=== PATIENT | female | born 1995 | race Caucasian/White ===

== ENCOUNTER 2024-02-04 14:29 | Emergency (ER) | payer BC, SELFPAY ==
--- NOTE | ~2024-02-04 | XR_ITS ---
XR chest 2V Ordering provider: Rand Briseno PA-C History: 28 years Female with . CP . Comparison: None. FINDINGS: MEDIASTINUM: The cardiac silhouette is not enlarged. LUNGS: No infiltrates, effusions or pneumothorax. OTHER: No free air under the diaphragm. IMPRESSION: No acute cardiopulmonary pathology. Reviewed, dictated and finalized at location A.
[2024-02-04 14:32] VITALS: BP 154/85; PULSE 74; RESP 18; TEMP 36.9; O2SAT 98
--- NOTE | 2024-02-04 14:34 | ECG_ITS ---
Test Date: 2024-02-04 14:40:38 Measurements Intervals [place] Rate: 71 P: 66 ND: 145 QRS: 77 QRSD: 80 T: 50 QT: 360 QTc: 391 Interpretive Statements SINUS RHYTHM NORMAL ECG No previous ECG available for comparison Electronically Signed On 02-04-2024 16:27:21 CDT by Maged Sanabria M.D.
--- NOTE | 2024-02-04 14:34 | ED_ITS ---
HPI - Chest Pain General Chief Complaint: Chest Pain Stated Complaint: chest pain Time Seen by Provider: 02/04/24 14:34 Focused HPI: this is a 28-year-old female that presents to the emergency department for left-sided chest pain. Ongoing intermittently over the last couple of days. Reports history of depression. Has had increased stress lately. She was recently started on an antidepressant. Reports sharp, stabbing pains worse with deep breathing. GENERAL: Anxious, tearful HEAD: Normocephalic, atraumatic. CHEST: Clear to auscultation. ?No respiratory distress. HEART: Regular rate and rhythm.? NEURO: ?Alert and oriented x3. Patient screened in triage and initial orders placed.? ?Additional care and disposition to be based upon?diagnostic testing and treatment. Related Data Allergies Allergy/AdvReac Type Severity Reaction Status Date / Time No Known Allergies Allergy Verified 02/04/24 14:30 [facility] Social History Social History Smoking status: Former smoker Alcohol intake: never Discharge Plan Discharge Follow-up/Referrals: Deepak,NOELLE Antoine [Primary Care Provider] -
[2024-02-04 15:17] LABS: Basophils Percent Auto 0.4 % (0.2-1.2); Eosinophils Absolute Auto 0.1 K/mm3 (0-0.3); Eosinophils Percent Auto 0.5 % (0-4.4); Immature Granulocyte Absolute 0.02 K/mm3 (0.00-0.031); Immature Granulocyte Percent A 0.2 % (0-0.5); Lymphocytes Absolute Auto 2.12 K/mm3 (0.9-3.2); Lymphocytes Percent Auto 22.3 % (18.3-44.2); Mean Corpuscular HGB Conc 33.3 g/dl (32-36); Mean Corpuscular Hemoglobin 31.1 pg (26-34); Mean Corpuscular Volume 93.3 fl (80-100); Mean Platelet Volume 9.3 fl (7.4-10.4); Monocytes Absolute Auto 0.5 K/mm3 (0.1-0.6); Neutrophils Absolute Auto 6.8 K/mm3 (1.3-6.7); Neutrophils Percent Auto 71.6 % (45.5-73.1); Platelet Count Result 253 k/mm3 (150-375); Red Cell Distribution Width 11.7 % (11.5-14.5); White Blood Count 9.5 K/mm3 (4.5-10.0)
[2024-02-04 15:33] LABS: Alanine Aminotransferase 11 U/L (6-35); Albumin Level 4.9 g/dL (3.5-5.1); Alkaline Phosphatase 54 U/L (38-126); Anion Gap 8 mmol/L (4-12); Aspartate Amino Transferase 21 U/L (14-36); Bilirubin,Total 0.8 mg/dL (0.2-1.3); Blood Urea Nitrogen 13 mg/dL (7-17); Calcium 9.4 mg/dL (8.4-10.2); Carbon Dioxide 26 mmol/L (22-30); Chloride 107 mmol/L (98-107); Estimated CRCL calculation 77 ml/min; Estimated Glomerular Filt Rate > 60; Glucose 91 mg/dL (65-110); Lipase 81 U/L (23-300); Sodium 141 mmol/L (137-145)
[2024-02-04 15:43] LABS: Troponin I < 0.012 ng/mL (0.000-0.034)
[2024-02-04 16:57] LABS: Prothrombin Time 13.4 Seconds (11.1-14.7)
[2024-02-04 16:58] LABS: Partial Thromboplastin Time 28.6 Seconds (22.3-36.8)
[2024-02-04 17:01] LABS: D Dimer 0.27 ug/mL (<0.48)
--- NOTE | 2024-02-04 17:32 | ED.CHESTPAIN ---
HPI - Chest Pain General Chief Complaint: Chest Pain Stated Complaint: chest pain Time Seen by Provider: 02/04/24 14:34 Source: patient Mode of arrival: ambulatory Limitations: no limitations History of Present Illness HPI narrative: Patient presents with left chest cramp like feeling, worse with stress, better at rest, started off and on for the last 4 weeks, was seen by her family physician recently started on anti depression medication yesterday without any improvement. Patient reports cons of stress in her life lately. She denies suicidal or homicidal ideation, fever, chills, nausea, vomiting. Patient report intermittent shortness of breath, jittery feeling inside and shaking outside, poor concentration, epigastric tightness. History of depression. Related Data Allergies Allergy/AdvReac Type Severity Reaction Status Date / Time No Known Allergies Allergy Verified 02/04/24 14:30 Review of Systems Review of Systems: All systems reviewed & are unremarkable except as noted in HPI and below PMFSH Social History Social History Smoking status: Former smoker Alcohol intake: never Exam Narrative: General appearance: Well-developed, well-nourished, restless Skin: Normal color Head: Normocephalic, nontraumatic Eyes: Clear conjunctiva ENT: Oropharynx normal, ears normal, nose normal Neck: Supple, nontender Chest and respiratory: Airway patent, no respiratory distress, no accessory muscle use Heart: Regular rate/rhythm Abdomen: Soft, nontender, no organomegaly, quiet bowel sounds Vascular: Normal peripheral pulses, normal capillary refill. Musculoskeletal: Normal range of motion, nontender back Neurologic: Alert and oriented ?3, [employer] COORDINATOR is normal as tested, no gross motor deficit Course Vital Signs Vital signs: Vital Signs Temperature 36.9 C 02/04/24 14:32 Pulse Rate 74 02/04/24 14:32 Respiratory Rate 18 02/04/24 14:32 Blood Pressure 154/85 H 02/04/24 14:32 Pulse Oximetry 98 02/04/24 14:32 Oxygen Delivery Room Air 02/04/24 14:32 Temperature 36.9 C 02/04/24 14:32 Pulse Rate 74 02/04/24 14:32 Respiratory Rate 18 02/04/24 14:32 Blood Pressure 154/85 H 02/04/24 14:32 Pulse Oximetry 98 02/04/24 14:32 Oxygen Delivery Room Air 02/04/24 14:32 MDM - Chest Pain MDM Narrative Medical decision making narrative: Patient presents with chest pain and anxiety like symptoms My plan to get some labs, chest x-ray, EKG. Heart score is 0. EKG on arrival showed no acute abnormalities Differential Diagnosis Differential diagnosis: Likely atypical chest pain, chest pain and other (ANXIETY LIKE SYMPTOMS) Medical Records Data Attestation: I reviewed the patient's medical records. Lab Data Attestation: I reviewed the patient's lab results. 02/04/24 14:47 02/04/24 14:47 Labs: Lab Results 02/04/24 02/04/24 Range/Units 14:47 16:33 WBC 9.5 (4.5-10.0) K/mm3 RBC 4.50 (4.2-5.4) M/mm3 Hgb 14.0 (12.0-15.0) g/dL Hct 42.0 (37.0-47.0) % MCV 93.3 (80-100) fl MCH 31.1 (26-34) pg MCHC 33.3 (32-36) g/dl RDW 11.7 (11.5-14.5) % Plt Count 253 (150-375) k/mm3 MPV 9.3 (7.4-10.4) fl Immature Gran % (Auto) 0.2 (0-0.5) % Neut % (Auto) 71.6 (45.5-73.1) % Lymph % (Auto) 22.3 (18.3-44.2) % [place] % (Auto) 5.0 (2.6-8.5) % Eos % (Auto) 0.5 (0-4.4) % Baso % (Auto) 0.4 (0.2-1.2) % Lymph # (Auto) 2.12 (0.9-3.2) K/mm3 [place] # (Auto) 0.5 (0.1-0.6) K/mm3 Eos # (Auto) 0.1 (0-0.3) K/mm3 Baso # (Auto) 0.0 (0.0-0.1) K/mm3 Abs Immat Gran (auto) 0.02 (0.00-0.031) K/mm3
[2024-02-04 19:23] VITALS: BP 128/72; PULSE 75; RESP 16; O2SAT 100
== END 2024-02-04 19:24 | disposition home or self-care (01) ==
PROVIDERS: Physician Assistant; Emergency Provider Emergency Medicine; PCP Nurse Practitioner
DX: R07.89 Other chest pain (principal); F41.9 Anxiety disorder, unspecified; Z87.891 Personal history of nicotine dependence
CPT/HCPCS: 36415; 71046; 80053; 83690; 84484; 85025; 85380; 85610; 85730; 93005; 99284

== ENCOUNTER 2024-02-23 09:00 | Emergency (ER) | payer OTHER, BC, SELFPAY ==
--- NOTE | ~2024-02-23 | CT_ITS ---
CT soft tissue neck w con Ordering provider: Maged Blue APRN History: 28 years Female with . sore throat, unilateral tonsilar swelling . Comparison: None. Technique: CT soft tissues neck was performed with contrast. . Automated exposure control and iterat karel reconstruction technique were employed. The dose-length product was 454.18 mGy-cm. 75 mL of Omnip aque 350 was given IV. Findings: LOWER HEAD: The visualized brain parenchyma, optic globes/orbits and mastoids are normal. The visua lized paranasal sinuses are well aerated. SALIVARY GLANDS: Normal. THYROID: Normal. SUPRAHYOID DEEP SPACES: Bilateral submandibular and parapharyngeal lymphadenopathy with the largest m easures 1.9 x 1.1 cm and 1.7 x 0.8 cm on the left side and on the right side 1.6 x 1.2 cm.. CAROTID ARTERIES: Normal. JUGULAR VEINS: Normal. TONSILS: Enlarged left tonsil with deviation of the oropharynx air. [place] area seen in the left t onsil which is most likely an abscess measuring 1 x 0.4 cm. ORAL CAVITY: normal as visualized. PHARYNX, LARYNX AND TRACHEA: Patent and normal. No prevertebral soft tissue swelling. SUPERFICIAL SOFT TISSUES: Normal. No lymphadenopathy or neck mass. THORACIC INLET/VISUALIZED UPPER CHEST: Normal. SKELETAL: Normal. IMPRESSION: 1. Left tonsillitis with small abscess. 2. Bilateral lymphadenopathy in the parapharyngeal spaces. Reviewed, dictated and finalized at location A.
[2024-02-23 09:04] VITALS: BP 110/82; PULSE 79; RESP 20; TEMP 36.2; O2SAT 100
--- NOTE | 2024-02-23 10:26 | ED.GENADULT ---
HPI - General Adult General Chief complaint: Unspecified Stated complaint: swelling to throat Time Seen by Provider: 02/23/24 10:10 History of Present Illness HPI narrative: 28-year-old female presents to the emergency room for evaluation of a sore throat. Patient states 3 weeks ago she was diagnosed with strep throat by her primary care provider, and admits to taking only 7 of the 10 days of her penicillin. States several days later her sore throat returned, she went to urgent care and was given a prescription for azithromycin. Patient states she is on day 4 of her Z-Behzad, and the pain is worsening. Patient was again seen at urgent care this morning and was told to come to the ER for further evaluation to rule out a tonsillar abscess. Patient reports dysphagia with no fever. Related Data Allergies Allergy/AdvReac Type Severity Reaction Status Date / Time No Known Allergies Allergy Verified 02/04/24 14:30 Review of Systems Review of Systems: ROS unremarkable except for noted in HPI PMFSH Social History Social History Smoking status: Former smoker Alcohol intake: never Exam Narrative: GENERAL: Well-appearing, well-nourished, no physical limitations, and in no acute distress. HEAD: Normocephalic, atraumatic. EYES: Conjunctivae normal, PERRLA and EOMI. ENT: bilateral tonsillar hypertrophy with erythema, L> R; NECK: Supple. No adenopathy or masses. CHEST: Clear to auscultation. No respiratory distress. No wheezes rales or rhonchi. HEART: Regular rate and rhythm. No murmur heard. Normal peripheral pulses. EXTREMITIES: Normal range of motion. No edema. No clubbing or cyanosis SKIN: Warm, dry, no rash. No noted wounds NEURO: No focal deficits. Alert and oriented x3. MAEW. CN's II-XI intact bilaterally, normal gait PSYCH: Cooperative. Normal mood and affect. Course Course Emergency Course: spoke to ENT, Dr. Whitley. Patient agreeable with discharge plan to provide patient IV Clindamycin here and sent home with oral clindamycin. Vital Signs Vital signs: Vital Signs Temperature 36.2 C L 02/23/24 09:04 Pulse Rate 79 02/23/24 09:04 Respiratory Rate 20 02/23/24 09:04 Blood Pressure 110/82 02/23/24 09:04 Pulse Oximetry 100 02/23/24 09:04 Oxygen Delivery Room Air 02/23/24 09:04 Temperature 36.2 C L 02/23/24 09:04 Pulse Rate 79 02/23/24 09:04 Respiratory Rate 20 02/23/24 09:04 Blood Pressure 110/82 02/23/24 09:04 Pulse Oximetry 100 02/23/24 09:04 Oxygen Delivery Room Air 02/23/24 09:04 Medical Decision Making Vital Signs Vital Signs: Vital Signs Temperature 36.2 C L 02/23/24 09:04 Pulse Rate 79 02/23/24 09:04 Respiratory Rate 20 02/23/24 09:04 Blood Pressure 110/82 02/23/24 09:04 Pulse Oximetry 100 02/23/24 09:04 Oxygen Delivery Room Air 02/23/24 09:04 Temperature 36.2 C L 02/23/24 09:04 Pulse Rate 79 02/23/24 09:04 Respiratory Rate 20 02/23/24 09:04 Blood Pressure 110/82 02/23/24 09:04 Pulse Oximetry 100 02/23/24 09:04 Oxygen Delivery Room Air 02/23/24 09:04 Lab Data 02/23/24 10:47 02/23/24 10:47 Labs: Lab Results 02/23/24 02/23/24 Range/Units 10:47 10:53 WBC 13.9 H (4.5-10.0) K/mm3 RBC 4.21 (4.2-5.4) M/mm3 Hgb 13.1 (12.0-15.0) g/dL Hct 39.6 (37.0-47.0) % MCV 94.1 (80-100) fl MCH 31.1 (26-34) pg MCHC 33.1 (32-36) g/dl RDW 12.1 (11.5-14.5) % Plt Count 210 (150-375) k/mm3 MPV 9.0 (7.4-10.4) fl Immature Gran % (Auto) 0.5 (0-0.5) % Neut % (Auto) 86.7 H (45.5-73.1) % Lymph % (Auto) 7.5 L (18.3-44.2) % [place] % (Auto) 4.7 (2.6-8.5) % Eos % (Auto) 0.3 (0-4.4) % Baso % (Auto) 0.3 (0.2-1.2) % Lymph # (Auto) 1.04 (0.9-3.2) K/mm3 [place] # (Auto) 0.7 H (0.1-0.6) K/mm3 Eos # (Auto) 0.0 (0-0.3) K/mm3 Baso # (Auto) 0.0 (0.0-0.1) K/mm
[2024-02-23 10:55] LABS: Basophils Percent Auto 0.3 % (0.2-1.2); Eosinophils Percent Auto 0.3 % (0-4.4); Hematocrit 39.6 % (37.0-47.0); Hemoglobin 13.1 g/dL (12.0-15.0); Immature Granulocyte Absolute 0.07 K/mm3 (0.00-0.031); Immature Granulocyte Percent A 0.5 % (0-0.5); Lymphocytes Absolute Auto 1.04 K/mm3 (0.9-3.2); Lymphocytes Percent Auto 7.5 % (18.3-44.2); Mean Corpuscular HGB Conc 33.1 g/dl (32-36); Mean Corpuscular Hemoglobin 31.1 pg (26-34); Mean Corpuscular Volume 94.1 fl (80-100); Monocytes Absolute Auto 0.7 K/mm3 (0.1-0.6); Monocytes Percent Auto 4.7 % (2.6-8.5); Neutrophils Absolute Auto 12.1 K/mm3 (1.3-6.7); Neutrophils Percent Auto 86.7 % (45.5-73.1); Platelet Count Result 210 k/mm3 (150-375); Red Blood Count 4.21 M/mm3 (4.2-5.4); Red Cell Distribution Width 12.1 % (11.5-14.5); White Blood Count 13.9 K/mm3 (4.5-10.0)
[2024-02-23 11:00] VITALS: RESP 17
[2024-02-23 11:16] LABS: Pregnancy On Board Control Positive; Urine Pregnancy Test Negative
[2024-02-23 11:18] LABS: Alanine Aminotransferase 11 U/L (6-35); Albumin Level 4.4 g/dL (3.5-5.1); Alkaline Phosphatase 51 U/L (38-126); Anion Gap 8 mmol/L (4-12); Aspartate Amino Transferase 18 U/L (14-36); Bilirubin,Total 0.8 mg/dL (0.2-1.3); Blood Urea Nitrogen 10 mg/dL (7-17); Carbon Dioxide 28 mmol/L (22-30); Chloride 104 mmol/L (98-107); Estimated CRCL calculation 101 ml/min; Estimated Glomerular Filt Rate > 60; Glucose 95 mg/dL (65-110); Potassium 4.2 mmol/L (3.4-5.0); Sodium 140 mmol/L (137-145)
[2024-02-23] MEDS: CLINDAMYCIN 600 MG/D5W 50 ML 600 MG/50 ML PIGGYBACK 100 MG IVPB (12:36)
[2024-02-23 13:05] VITALS: BP 121/77; PULSE 93; RESP 17; O2SAT 99
== END 2024-02-23 13:11 | disposition home or self-care (01) ==
PROVIDERS: Emergency Provider Nurse Practitioner Family; PCP Nurse Practitioner
DX: J36 Peritonsillar abscess (principal); Z87.891 Personal history of nicotine dependence
CPT/HCPCS: 36415; 70491; 80053; 81025; 85025; 96365; 99284; Q9967